=== PATIENT | female | born 1990 | race American Indian/Alaskan Native ===

== ENCOUNTER 2016-11-10 15:35 | Emergency (ER) | payer SELFPAY ==
[2016-11-10 15:49] VITALS: BP 130/89
--- NOTE | 2016-11-10 17:17 | Emergency Department Report ---
Chief Complaint: Chest Pain Stated Complaint: CHEST/HEAD PN/CRAMPS IN LOWER ABD AREA/PANIC ATTAC Time Seen by Provider: 11/10/16 17:06 - HPI History of Present Illness: PT c/o chest and abd pain x a few days - ROS Review of Systems: + headache + chest pain - worse with palpitation + abd pain + 2 panic attacks today - Exam Vital Signs: Vital Signs 11/10/16 15:46 Temperature 98.5 F Pulse Rate 89 Respiratory 20 Rate Blood Pressure 130/89 O2 Sat by Pulse 100 Oximetry MSE screening note: Focused history and physical exam performed. Due to findings the following was ordered: ED Disposition for MSE Condition: Stable
[2016-11-10 17:28] LABS: Urine Drugs of Abuse Note Disclamer
[2016-11-10 18:00] LABS: Hematocrit 34.8 % (30.3-42.9); Hemoglobin 11.1 gm/dl (10.1-14.3); Mean Corpuscular HGB Conc 32 % (30-34); Mean Corpuscular Volume 70 fl (79-97); Platelet Count 370 K/mm3 (140-440); Red Blood Count 4.94 M/mm3 (3.65-5.03); Red Cell Distribution Width 17.3 % (13.2-15.2); White Blood Count 10.4 K/mm3 (4.5-11.0)
[2016-11-10 18:04] LABS: Mean Corpuscular Hemoglobin 22 pg (28-32)
[2016-11-10 18:05] LABS: Bilirubin,Urine NEG (Negative); Blood,Urine NEG (Negative); Ketones,Urine NEG (Negative); Leukocyte Esterase,Urine NEG (Negative); Mucus,Urine 1+ /HPF; Nitrite,Urine NEG (Negative)
[2016-11-10 18:07] LABS: Alanine Aminotransferase 14 units/L (7-56); Albumin 4.3 g/dL (3.9-5); Albumin/Globulin Ratio 1.1 %; Alkaline Phosphatase 75 units/L (35-129); Anion Gap 17 mmol/L; Blood Urea Nitrogen 10 mg/dL (7-17); Calcium 9.4 mg/dL (8.4-10.2); Carbon Dioxide 25 mmol/L (22-30); Chloride 101.2 mmol/L (98-107); Glucose 82 mg/dL (65-100); Potassium 4.5 mmol/L (3.6-5.0); Sodium 139 mmol/L (137-145); Total Protein 8.3 g/dL (6.3-8.2)
[2016-11-10 19:54] LABS: Basophils % (Manual) 0 % (0.0-1.8); Blastocytes % (Manual) 0 %
[2016-11-10 19:55] LABS: Anisocytosis 1+; Diff Status Complete; Elliptocytes Few; Platelet Estimate Consistent w Auto
--- NOTE | 2016-11-11 07:52 | XRay Report ---
ROUTINE CHEST, TWO VIEWS: HISTORY: chest pain. The trachea, heart, mediastinal contour, lung howe and bony thorax are unremarkable. IMPRESSION: Unremarkable chest x-ray.
== END 2016-11-10 20:45 | disposition left against medical advice (07) ==
LOC: ED 15:35
DX: R07.9 Chest pain, unspecified (principal); R10.30 Lower abdominal pain, unspecified; R51 Headache; Z53.21 Procedure and treatment not carried out due to patient leaving prior to being seen by health care provider
CPT/HCPCS: 36415; 71020; 80053; 80307; 81001; 83690; 84484; 84703; 85007; 85025; 93005; 93010

== ENCOUNTER 2018-06-30 13:10 | Inpatient (IN) | payer MEDICAID ==
[2018-06-30] MEDS ORDERED: BRETHINE SUB-Q PRN (14:14)
[2018-06-30] MEDS ORDERED: SUBLIMAZE IV PRN (14:14)
[2018-06-30] MEDS ORDERED: BRETHINE IVP PRN (14:14)
[2018-06-30] MEDS ORDERED: XYLOCAINE 2% INFILTRATI ONE (14:14)
[2018-06-30] MEDS ORDERED: ZOFRAN IV PRN ×2 (14:14→19:49)
--- NOTE | 2018-06-30 14:33 | History and Physical Report ---
History of Present Illness Date of examination: 06/30/18 Date of admission: 06/30/18 13:10 Chief complaint: Sent from office for advanced dilation History of present illness: 27 yo AA Fe TANYA 06/28/2018 (LMP), 40 weeks 2 days sent from office for advanced dilation (6-7 cm). Pt initiated early care with [facility] at 9w3d. Early complicated with hyperemesisi (zofran). Known history of obesity (BMI 33.99; TSH 1.750, HgbA1c 6.1, elevated 1 hr GTT 143, 3hr 90, 146, 103, 94), Anemia (FeS04 supplementation), Beta Thalassemia Minor. Pt had a history of pre-eclampsia with first pregnancyl. Labs: O positive, Rubella Immune, VDRL non-reactive, HBsAG negative, HIV negative,InformaSeq Negative, GC/CL/Trich Negative, GBS Negative. 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 denies: smoking, alcohol abuse, prescription drug abuse, IV drug use - Obstetrical History Expected Date of Delivery: 06/28/18 Actual Gestation: 40 Week(s) 2 Day(s) : 2 Para: 1 Hx # Term Pregnancies: 1 Number of Pregnancies: 0 Spontaneous Abortions: 0 Induced : 0 Number of Living Children: 1 #1 Gender: Female year: 2[birth year] Birthweight: 2.863 kg Method of Delivery: Vaginal Gestational age at delivery: 37 Complications: other (preeclampsia) Medications and Allergies Allergies Allergy/AdvReac Type Severity Reaction Status Date / Time No Known Allergies Allergy Verified 06/17/15 22:58 Home Medications Medication Instructions Recorded Confirmed Last Taken Type Vit-Fe Fumar-FA [ 1 tab PO QDAY #31 tablet 06/18/15 04/18/18 04/18/18 10:00 Rx Vitamin] Active Meds: Active Medications Ephedrine Sulfate (Ephedrine Sulfate) 10 mg IV Q2M PRN PRN Reason: Hypotension Fentanyl (Sublimaze) 100 mcg IV Q2H PRN PRN Reason: Labor Pain Lactated Ringer's (Lactated Ringers) 1,000 mls @ 125 mls/hr IV DIRECT QUINTON Oxytocin/Sodium Chloride (Pitocin/Ns 20 Unit/1000ml Drip) 20 units in 1,000 mls @ 125 mls/hr IV DIRECT QUINTON Oxytocin/Sodium Chloride (Pitocin/Ns 30 Unit/500ml) 30 units in 500 mls @ 1 mls/hr IV TITR QUINTON; Protocol Lidocaine (Xylocaine 2%) 20 ml INFILTRATI ONCE ONE Stop: 06/30/18 14:15 Mineral Oil (Mineral Oil) 30 ml PO QHS PRN PRN Reason: Constipation Ondansetron HCl (Zofran) 4 mg IV Q8H PRN PRN Reason: Nausea And Vomiting Terbutaline Sulfate (Brethine) 0.25 mg SUB-Q ONCE PRN PRN Reason: Hyperstimulation/Hypertonicity Terbutaline Sulfate (Brethine) 0.25 mg IVP ONCE PRN PRN Reason: Hyperstimulation/Hypertonicity Review of Systems Cardiovascular: no chest pain, no shortness of breath Respiratory: no shortness of breath Breasts: normal Gastrointestinal: no abdominal pain, no nausea, no vomiting, no diarrhea Genitourinary: normal appearance, vaginal discharge (mucous), contractions (mild), no vaginal bleeding, no leakage of fluid, no pelvic pain, no genital sores Integumentary: no rash, no sores, no lesions Neurological: other (denies) Psychiatric: other (Denies) Hematologic/Lymphatic: other (Beta Thalassemia minor) - Vital Signs Vital signs: Vital Signs Pulse BP 85 124/84 06/30/18 13:33 06/30/18 13:33 Temp Pulse Resp BP Pulse Ox 76 124/84 100 06/30/18 14:18 06/30/18 13:33 06/30/18 14:18 - Physical Exam Breasts: Positive: normal Cardiovascular: Regular rate, Normal S1, Normal S2, No murmurs Lungs: Positive: Clear to auscultation, Normal air movement Abdomen: Positive: normal appearance, soft, normal bowel sounds. Negative: distention Genitourinary (Female): Positive: normal external genitalia, normal perenium Vulva: both: normal Vagina: Positive: normal moisture, discharge (mucous) Uterus: Positive: enlarged (gravid) Anus/Rectum: Positive: normal perianal skin Extremities: Positive: normal Deep Tendon Reflex Grade: Normal +2 - Obstetrical Uterine Contraction Monitor Mode: External Cervical Dilatation: 6 Cervical Effacement Percentage: 75 station: -1 Uterine Contraction Pattern: Irregular Uterine Tone Measurement Phase: Resting Uterine Contraction Intensity: Mild Results All other labs normal. Assessment and Plan A: Term IUP at 40w2d GBS Negative Category 1 tracing Advanced dilation P: Admit to L&D; Routine labor orders Pitocin Augmentation Anticipate
[2018-06-30] MEDS ORDERED: LACTATED RINGERS 1,000 ML IV SCH (15:00)
[2018-06-30] MEDS ORDERED: PITOCin/NS 30 UNIT/500ML 30 UNITS/500 ML BAG IV SCH (15:00)
[2018-06-30 15:39] LABS: Hematocrit 32.9 % (30.3-42.9); Hemoglobin 10.4 gm/dl (10.1-14.3); Mean Corpuscular HGB Conc 32 % (30-34); Mean Corpuscular Volume 71 fl (79-97); Platelet Count 336 K/mm3 (140-440); Red Blood Count 4.66 M/mm3 (3.65-5.03); Red Cell Distribution Width 17.7 % (13.2-15.2)
--- NOTE | 2018-06-30 16:15 | Anesthesia Consultation ---
Anesthesia Consult and Med Hx Date of service: 06/30/18 - Airway Anesthetic Teeth Evaluation: Good Mallampati Class: Class III Intubation Access Assessment: Probably Good - Pulmonary Exam CTA: Yes - Cardiac Exam Cardiac Exam: RRR - Pre-Operative Health Status ASA Pre-Surgery Classification: ASA2 Proposed Anesthetic Plan: Epidural - Pulmonary Hx Asthma: No COPD: No Hx Pneumonia: No - Cardiovascular System Hx Hypertension: No - Central Nervous System Hx Seizures: No Hx Psychiatric Problems: No - Endocrine Hx Renal Disease: No Hx End Stage Renal Disease: No Hx Hypothyroidism: No Hx Hyperthyroidism: No - Hematic Hx Anemia: Yes Hx Sickle Cell Disease: No - Other Systems Hx Alcohol Use: No
[2018-06-30] MEDS ORDERED: NARCAN 2 MG/2 ML IV PRN (16:16)
[2018-06-30] MEDS ORDERED: fentaNYL-BUPIV 2 MCG/ML-0.125% 200 MCG/100 ML BAG EPIDURAL SCH (17:00)
[2018-06-30] MEDS ORDERED: PHENERGAN PO PRN (19:49)
[2018-06-30] MEDS ORDERED: LANSINOH TP PRN (19:49)
[2018-06-30] MEDS ORDERED: TYLENOL PO PRN (19:49)
[2018-06-30] MEDS ORDERED: TUCKS PAD TP PRN (19:49)
[2018-06-30] MEDS ORDERED: NORCO 5/325 PO PRN (19:49)
[2018-06-30] MEDS ORDERED: BENADRYL PO PRN (19:49)
[2018-06-30] MEDS ORDERED: DULCOLAX PR PRN (19:49)
[2018-06-30] MEDS ORDERED: MILK OF MAGNESIA PO PRN (19:49)
--- NOTE | 2018-06-30 19:57 | Procedure Note ---
OB Delivery Note - Delivery Date of Delivery: 06/30/18 (19:37) Surgeon: TRENTON SÁNCHEZ (HINA) Estimated blood loss: 100cc - Vaginal Delivery presentation: vertex Delivery position: OA Intrapartum events: none Delivery induction: none Delivery augmentation: rupture of membranes Delivery monitor: external FHT, external uterine Route of delivery: (19:37) Delivery placenta: spontaneous (19:44) Delivery cord: 3 umbilical vessels Episiotomy: none Delivery laceration: none Anesthesia: epidural Delivery comments: viable male JOSSIE position over intact perineum at 19:37. dried and bulb suctioned. Spontaneous lusty cry. [id number] on mothers abdomen. Delayed cord clamping and then cut by FOB with my guidance. Cord blood collected per protocol. Spontaneous fonseca delivery of intact placenta at 19:44. FF@U-1, lochia small. No tears or lacerations. EBL 100cc. and mother left in stable condition in L&D. - A at 1 minute: 8 at 5 minutes: 9 Gender: Male (8lbs 10oz, 3911 grams, 21")
[2018-06-30] MEDS ORDERED: SODIUM CHLORIDE FLUSH SYRINGE 10 ML IV NR (20:00)
[2018-06-30] MEDS: PITOCin/NS 20 UNIT/1000ML DRIP 20 UNITS/1,000 ML BAG IV SCH ×2 (20:28→21:30)
[2018-06-30] MEDS ORDERED: MINERAL OIL PO PRN (22:00)
[2018-07-01] MEDS: IBUPROFEN PO SCH ×2 (00:18→05:23)
--- NOTE | 2018-07-01 12:19 | Progress Note ---
Assessment and Plan A: PPD#1 s/p Stable P: Routine orders Discharge home 07/02/18 Subjective - Subjective Date of service: 07/01/18 Principal diagnosis: PPD#1 s/p Interval history: 27 yo AA Fe TANYA 06/28/2018 (LMP), 40 weeks 2 days sent from office for advanced dilation (6-7 cm). Pt initiated early care with [facility] at 9w3d. Early complicated with hyperemesisi (zofran). Known history of obesity (BMI 33.99; TSH 1.750, HgbA1c 6.1, elevated 1 hr GTT 143, 3hr 90, 146, 103, 94), Anemia (FeS04 supplementation), Beta Thalassemia Minor. Pt had a history of pre-eclampsia with first pregnancyl. Labs: O positive, Rubella Immune, VDRL non-reactive, HBsAG negative, HIV negative,InformaSeq Negative, GC/CL/Trich Negative, GBS Negative. Patient reports: appetite normal, voiding normally, pain well controlled, flatus, ambulating normally, no bowel movement : doing well, nursing well Objective - Vital Signs Latest vital signs: Vital Signs Temp Pulse Resp BP BP Pulse Ox 07/01/18 08:39 97.9 F 63 18 109/72 100 07/01/18 05:23 18 07/01/18 04:10 98.4 F 73 18 120/71 99 07/01/18 00:58 60 98 07/01/18 00:56 81 113/67 98 07/01/18 00:00 98.0 F 80 18 113/67 99 06/30/18 21:19 66 115/74 06/30/18 21:04 51 L 111/68 06/30/18 20:51 75 72 L 06/30/18 20:50 70 99 06/30/18 20:49 56 L 118/71 06/30/18 20:45 71 100 06/30/18 20:40 93 H 64 L 06/30/18 20:39 78 93 06/30/18 20:35 73 99 06/30/18 20:34 64 117/70 06/30/18 20:33 78 79 L 06/30/18 20:30 69 92 06/30/18 20:28 63 92 06/30/18 20:25 68 96 06/30/18 20:20 65 100 06/30/18 20:19 68 108/59 92 06/30/18 20:15 82 84 06/30/18 20:13 83 87 06/30/18 20:10 80 98 06/30/18 20:07 89 75 L 06/30/18 20:05 72 98 06/30/18 20:04 66 113/57 06/30/18 20:01 70 93 06/30/18 20:00 81 98 06/30/18 19:56 80 87 06/30/18 19:55 73 98 06/30/18 19:50 98.9 F 71 18 105/57 99 06/30/18 19:49 68 105/57 0 L 06/30/18 19:42 76 117/53 06/30/18 19:36 69 79 L 06/30/18 19:34 77 99 06/30/18 19:29 73 98 06/30/18 19:28 50 L 60 L 06/30/18 19:24 76 99 06/30/18 19:20 98.2 F 77 18 111/68 98 06/30/18 19:19 87 99 06/30/18 19:14 76 98 06/30/18 19:13 65 111/68 06/30/18 19:08 68 100 06/30/18 19:03 69 99 06/30/18 18:58 71 99 06/30/18 18:53 67 100 06/30/18 18:48 64 97 06/30/18 18:43 66 99 06/30/18 18:42 63 100/56 06/30/18 18:38 64 100 06/30/18 18:33 75 99 06/30/18 18:28 83 100 06/30/18 18:21 52 L 72 L 06/30/18 18:13 98.8 F 20 06/30/18 18:12 72 107/57 06/30/18 17:56 69 100/58 19 17:42 65 100/55 19 17:26 65 117/59 06/30/18 17:14 93 H 99 06/30/18 17:12 66 122/46 06/30/18 17:09 73 100 06/30/18 17:04 83 99 06/30/18 17:00 98.2 F 20 03/14/19 16:59 65 100 06/30/18 16:54 75 125/73 100 06/30/18 16:51 71 122/69 06/30/18 16:49 66 100 06/30/18 16:48 65 132/75 06/30/18 16:45 65 133/75 06/30/18 16:44 79 99 06/30/18 16:42 71 133/69 06/30/18 16:39 61 100 06/30/18 16:38 76 129/66 06/30/18 16:37 61 125/63 06/30/18 16:36 65 128/66 06/30/18 16:35 64 132/64 06/30/18 16:34 74 133/63 74 L 06/30/18 16:32 57 L 76 L 06/30/18 16:31 72 133/76 06/30/18 16:30 80 129/75 06/30/18 16:29 66 134/81 100 06/30/18 16:28 80 132/79 06/30/18 16:24 71 100 06/30/18 16:21 77 134/80 06/30/18 16:20 20 146/81 06/30/18 16:19 89 100 06/30/18 16:12 85 84 06/30/18 16:10 73 100 06/30/18 16:06 78 146/81 06/30/18 16:05 94 H 100 06/30/18 16:01 69 144/85 06/30/18 16:00 87 99 06/30/18 15:59 77 80 L 06/30/18 15:57 64 138/82 06/30/18 15:55 80 96 06/30/18 15:52 75 145/88 06/30/18 15:51 99.9 F H 20 06/30/18 15:50 70 99 06/30/18 15:46 90 139/85 06/30/18 15:45 74 98 06/30/18 15:41 73 144/86 06/30/18 14:23 83 99 06/30/18 14:18 76 100 06/30/18 13:33 85 124/84 Intake and Output 06/30/18 07/01/18 07/01/18 23:59 07:59 15:59 Intake Total 369.167 360 Output Total 800 400 Balance -430.833 -40 Intake: IV 129.167 PITOCin/NS 20 UNIT/1000ML 129.167 DRIP 20 units In 1,000 ml @ 125 mls/hr IV DIRECT QUINTON Rx#:[id number] Oral 240 Intake, Free Water 360 Output: Urine 800 400 Void 800 400 Other: Total, Intake Amount 240 Total, Output Amount 800 400 # Voids Void 1 1 Estimated Blood Loss 100 - Exam Breasts: Present: normal, Cardiovascular: Present: Regular rate, Normal S1, Normal S2, No murmurs Lungs: Present: Clear to auscultation, Normal air movement Abdomen: Present: normal appearance, soft, normal bowel sounds. Absent: distention, tenderness Vulva: both: normal Uterus: Present: firm, fundal height below umbilicus (-1) Extremities: Present: normal Deep Tendon Reflex Grade: Normal +2 - Labs Labs: Abnormal lab results 06/30/18 07/01/18 Range/Units 14:30 07:21 Hgb 9.0 L (10.1-14.3) gm/dl Hct 28.0 L (30.3-42.9) % MCV 71 L (79-97) fl MCH 22 L (28-32) pg RDW 17.7 H (13.2-15.2) %
--- NOTE | 2018-07-01 12:21 | Discharge Summary ---
<SHIRA - Last Filed: 07/01/18 12:19> Providers - Providers Date of Admission: 06/30/18 13:10 Date of discharge: 07/02/18 Attending physician: JULIANNA PIERSON MD Primary care physician: JULIANNA PIERSON MD Hospitalization Reason for admission: IUP at term, other (Advanced dilation) Delivery: Procedure details: See delivery note Episiotomy: none Laceration: none Other procedures: none complications: none Discharge diagnosis: IUP at term delivered [place] baby: male Condition at discharge: Good Disposition: DC-01 TO HOME OR SELFCARE Plan - Provider Discharge Summary Activity: routine, no sex for 6 weeks, no heavy lifting 4 weeks, no strenuous exercise Diet: routine Instructions: routine Additional instructions: [] Smoking cessation referral if applicable(refer to patient education folder for contact #) [] Refer to [facility]'s [facility] Booklet Call your doctor immediately for: * Fever > 100.5 * Heavy vaginal bleeding ( >1 pad per hour) * Severe persistent headache * Shortness of breath * Reddened, hot, painful area to leg or breast * Drainage or odor from incision. * Keep incision clean and dry at all times and follow doctor's instructions regarding bathing/showering - Follow up plan Follow up: JULIANNA PIERSON MD [Primary Care Provider] - 6 Weeks <LACHO LUO - Last Filed: 07/02/18 13:51> Providers - Providers Date of Admission: 06/30/18 13:10 Attending physician: JULIANNA PIERSON MD Primary care physician: JULIANNA PIERSON MD Hospitalization Pertinent studies: Laboratory Results - last 72 hr 06/30/18 06/30/18 06/30/18 14:30 14:30 14:30 WBC 7.7 RBC 4.66 Hgb 10.4 Hct 32.9 MCV 71 L MCH 22 L MCHC 32 RDW 17.7 H Plt Count 336 RPR Nonreactive Blood Type O POSITIVE Antibody Screen Negative 07/01/18 07:21 WBC RBC Hgb 9.0 L Hct 28.0 L MCV MCH MCHC RDW Plt Count RPR Blood Type Antibody Screen - Discharge Diagnoses (1) Anemia due to acute blood loss Status: Acute Comment: Asymptomatic. Discharge home on supplemental iron therapy. Plan - Provider Discharge Summary Additional instructions: [] Smoking cessation referral if applicable(refer to patient education folder for contact #) [] Refer to [facility]'s [facility] Booklet Call your doctor immediately for: * Fever > 100.5 * Heavy vaginal bleeding ( >1 pad per hour) * Severe persistent headache * Shortness of breath * Reddened, hot, painful area to leg or breast * Drainage or odor from incision. * Keep incision clean and dry at all times and follow doctor's instructions regarding bathing/showering
[2018-07-02] MEDS: IBUPROFEN PO SCH ×3 (00:37→18:25)
[2018-07-02 20:19] VITALS: BP 105/70
== END 2018-07-02 16:15 | disposition home or self-care (01) | DRG 775 ==
LOC: LD 13:10 → OB 21:55
PROVIDERS: ADMIT Obstetrics & Gynecology; ATTEND Obstetrics & Gynecology
PROC: 10E0XZZ Delivery of Products of Conception, External Approach (ICD-10-PCS; principal; 2018-06-30)
PROC: 3E0R3BZ Introduction of Anesthetic Agent into Spinal Canal, Percutaneous Approach (ICD-10-PCS; 2018-06-30)
PROC: 00HU33Z Insertion of Infusion Device into Spinal Canal, Percutaneous Approach (ICD-10-PCS; 2018-06-30)
DX: O99.214 Obesity complicating childbirth (principal); O99.02 Anemia complicating childbirth; Z3A.40 40 weeks gestation of pregnancy; Z37.0 Single live birth; D62 Acute posthemorrhagic anemia; E66.9 Obesity, unspecified
CPT/HCPCS: 36415; 85014; 85018; 85027; 86592; 86850; 86900; 86901; G0378; A6250; J2405; J2590; J3010; J7120

== ENCOUNTER 2018-09-15 10:59 | Day surgery (SDC) | payer MEDICAID ==
[2018-09-15] MEDS ORDERED: LACTATED RINGERS 1,000 ML IV SCH (11:21)
[2018-09-15] MEDS ORDERED: DILAUDID IV PRN (11:56)
--- NOTE | 2018-09-15 11:56 | Anesthesia Day of Surgery ---
Anesthesia Day of Surgery - Day of Surgery Patient Examined: Yes Patient H&P Reviewed: Yes Patient is NPO: Yes
--- NOTE | 2018-09-15 11:56 | Anesthesia Consultation ---
Anesthesia Consult and Med Hx Date of service: 09/15/18 - Airway Anesthetic Teeth Evaluation: Good ROM Head & Neck: Adequate Mental/Hyoid Distance: Adequate Mallampati Class: Class II Intubation Access Assessment: Probably Good - Pulmonary Exam CTA: Yes - Cardiac Exam Cardiac Exam: RRR - Pre-Operative Health Status ASA Pre-Surgery Classification: ASA2 Proposed Anesthetic Plan: General - Pulmonary Hx Smoking: Yes (3 cigs/day) Hx Respiratory Symptoms: No Hx Sleep Apnea: No - Cardiovascular System Hx Hypertension: No Hx Heart Attack/AMI: No - Central Nervous System CVA: No - Gastrointestinal Hx Gastroesophageal Reflux Disease: No - Endocrine Hx Renal Disease: No Hx Liver Disease: No Hx Insulin Dependent Diabetes: No Hx Non-Insulin Dependent Diabetes: No Hx Thyroid Disease: No - Hematic Hx Anemia: Yes Hx Sickle Cell Disease: No - Other Systems Hx Obesity: Yes - Additional Comments Anesthesia Medical History Comments: No hx anesthetic complications.
[2018-09-15] MEDS ORDERED: VERSED IV NR (12:00)
[2018-09-15] MEDS ORDERED: TRANSDERM-SCOP TD NR (12:00)
[2018-09-15] MEDS ORDERED: NEURONTIN PO NR (12:00)
[2018-09-15] MEDS ORDERED: DIPRIVAN 10 MG/ML IV ONE (14:51)
[2018-09-15] MEDS ORDERED: VERSED ONE (14:51)
[2018-09-15] MEDS ORDERED: SUBLIMAZE ONE (14:51)
[2018-09-15] MEDS ORDERED: MARCAINE 0.5% INFILTRATI ONE ×2 (15:19→15:27)
[2018-09-15] MEDS ORDERED: BRIDION IV ONE (16:18)
--- NOTE | 2018-09-15 17:24 | Operative Report ---
Operative Report Operative Report: Preoperative diagnosis: Multiparity, desires permanent sterilization. Postoperative diagnosis: Same as preoperative diagnosis. Procedure: Laparoscopic tubal ligation. Surgeon: Dr. Michaels Hauling Contractor: none Anesthesia: general EBL: negligible IVF: RL 1 liter Complications: none Intraoperative findings: Normal uterus, fallopian tubes and ovaries bilaterally. Procedure details: Risks, benefits, and alternatives of the procedure were discussed in detail with the patient which included but not limited to risk of infection, hemorrhage requiring blood transfusion, injury to the bowel or bladder and blood vessels, failure of the tubal ligation to prevent which can result in unwanted pregnancies in the future. The patient expressed understanding, her questions were answered, and she gave informed consent. The patient was taken to the operating room with an IV fluid using Ringer's lactate. In the operating room, she was placed in a dorsal supine position and given general anesthesia. She was then placed on the stirrups in a dorsal lithotomy position. The perineum, vagina, cervix, and abdomen were washed and she was prepared and draped in usual sterile fashion. A bivalve speculum was placed in the vagina and the anterior lip of the cervix was grasped with a single-tooth tenaculum. A HUMI uterine manipulator was advanced into the uterine cavity to provide a means of manipulating the uterus and the procedure. The speculum and tenaculum were then removed. Attention was then turned to the patient's abdomen where a 5 mm skin incision was made in the infraumbilical fold. The Veress needle was introduced into the peritoneal cavity while tenting the abdominal wall. Intraperitoneal placement was confirmed by using a water-filled syringe and by noticing a drop in the intra-abdominal pressure with CO2 gas insufflation. The trocar and sleeves were then advanced without difficulty into the abdomen where intraperitoneal placement was confirmed using laparoscope. Pneumoperitoneum was achieved with 3.5 L of CO2 gas. A second 5 mm skin incision was made in the left lower quadrant and a 5 mm trocar and sleeves were then advanced into the abdominal cavity under direct visualization with the laparoscope. A quick survey of the anatomy revealed a normal uterus, fallopian tubes, and ovaries bilaterally. The left fallopian tube was grasped with ligasure, cauterized at 2 locations, and transected . A similar procedure was done with the right fallopian tube which was cauterized and transected in a similar fashion. Good hemostasis was confirmed. The ports were then opened to release to CO2 gas from the abdomen. The instruments were then removed. The ports were closed with 3.0 vicryl sutures. Steri-Strip and Tegaderm were placed. The HUMI uterine manipulator was then removed from the uterine cavity. The counts of laps, needles, sponges, and instruments were correct 2. The patient tolerated the procedure well. She was awakened from anesthesia and taken to the recovery room in a stable condition.
[2018-09-15 18:55] VITALS: BP 152/99
== END 2018-09-15 11:00 | disposition home or self-care (01) ==
LOC: OR 10:59
PROVIDERS: ATTEND Obstetrics & Gynecology
DX: Z30.2 Encounter for sterilization (principal); D62 Acute posthemorrhagic anemia; E66.9 Obesity, unspecified; F17.210 Nicotine dependence, cigarettes, uncomplicated; Z79.899 Other long term (current) drug therapy; Z98.890 Other specified postprocedural states; Z80.8 Family history of malignant neoplasm of other organs or systems; Z83.3 Family history of diabetes mellitus; Z68.31 Body mass index [BMI] 31.0-31.9, adult; Z82.49 Family history of ischemic heart disease and other diseases of the circulatory system
CPT/HCPCS: 58670; 81025; J2250; J2704; J3010; J7120